=== PATIENT | female | born 1985 | race Two or more races ===

== ENCOUNTER 2022-08-17 23:02 | Emergency (ER) | payer BC ==
[~2022-08-17] VITALS: Ht 152.4 cm; Wt 74.4 kg
[2022-08-17 23:34] VITALS: BP 124/79
[2022-08-17] MEDS ORDERED: IBUP-1957 PO (23:47)
[2022-08-17] MEDS ORDERED: PRED50TA PO (23:47)
[2022-08-17] MEDS ORDERED: DEXAMETHASONE SOD PHOSPHATE 10 MG/ML VIAL ONE (23:50)
[2022-08-17] MEDS ORDERED: KETOROLAC TROMETHAMINE INJ 60 MG/2 ML VIAL IM ONE (23:50)
[2022-08-18] MEDS ORDERED: KETOROLAC TROMETHAMINE INJ 60 MG/2 ML VIAL IM ONE
[2022-08-18] MEDS ORDERED: DEXAMETHASONE SOD PHOSPHATE 4 MG/ML VIAL IM ONE
== END 2022-08-18 00:01 | disposition home or self-care (01) ==
LOC: ER 23:02
DX: J02.9 Acute pharyngitis, unspecified (principal); Z79.899 Other long term (current) drug therapy
CPT/HCPCS: J1100; J1885